=== PATIENT | male | born 1975 | race Caucasian/White ===

== ENCOUNTER 2018-08-05 06:25 | Day surgery (SDC) | payer BC ==
[2018-07-30 16:42] LABS: Absolute Lymphocytes (CBC) 2.1 K/uL (0.7-4.9); Absolute Monocytes 0.6 K/uL (0.1-1.3); Absolute Neutrophil 6.8 K/uL (1.8-8.0); Basophils % 0.4 % (0-1.3); Eosinophils % 1.2 % (0-4.4); Hematocrit 45.7 % (39.6-49.0); Lymphocytes % 21.8 % (15.3-44.8); MPV 10.2 fL (7.6-11.3); Monocytes % 6.4 % (3.3-12.3); RBC Red Blood Cell Count 5.13 M/uL (4.33-5.43)
[2018-07-30 16:54] LABS: Potassium 3.6 mmol/L (3.5-5.1)
[2018-07-30 16:56] LABS: Protime INR 1.04
--- NOTE | 2018-08-04 11:21 | EKG ---
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
--- OUTSIDE RECORDS SUMMARY | 2018-08-05 06:31 | XMS REPORT ---
:1975 Author Organization [employer] Care Team Providers Name Role Phone Emmanuel Staley Provider Role Unavailable Allergies, Adverse Reactions, Alerts Substance Reaction Event Type Ibuprofen Info Not Available Drug Allergy Problems Problem Type Condition Code Onset Dates Condition Status Problem Seasonal allergic rhinitis due to J30.1 Active pollen Problem Migraine with status migrainosus, G43.901 Active not intractable, unspecified migraine type Problem Low back pain, unspecified back M54.5 Active pain laterality, unspecified chronicity, with sciatica presence unspecified Assessment Tear of medial meniscus of right S83.241A Active knee, current, unspecified tear type, initial encounter Assessment Pain in joint of right knee M25.561 Active Medications No Known Medications Results No Known Results Summary Purpose [employer] Submission
--- OUTSIDE RECORDS SUMMARY | 2018-08-05 06:32 | XMS REPORT ---
:1975 Author Organization [employer] Care Team Providers Name Role Phone Emmanuel Staley Provider Role Unavailable Allergies No Known Allergies Problems Problem Type Condition Code Onset Dates Condition Status Problem Seasonal allergic rhinitis due to J30.1 Active pollen Problem Migraine with status migrainosus, G43.901 Active not intractable, unspecified migraine type Problem Low back pain, unspecified back M54.5 Active pain laterality, unspecified chronicity, with sciatica presence unspecified Medications No Known Medications Results No Known Results Summary Purpose [employer] Submission
--- OUTSIDE RECORDS SUMMARY | 2018-08-05 06:32 | XMS REPORT ---
[...] joint of right knee M25.561 Active Medications Medication Code System Code Instructions Start End Date Status Dosage Date [facility] [id number] 7.5-325 MG July 30August 19, Active 1 tablet Orally every 4-6 2018 2018 as needed hrs Results No Known Results Summary Purpose [employer] Submission
[2018-08-05] MEDS ORDERED: Ringers Lactate 1,000 ML IV ONE (07:02)
[2018-08-05] MEDS ORDERED: PROPOFOL 200 MG/20 ML VIAL IV ONE (07:11)
[2018-08-05] MEDS ORDERED: KETOROLAC 30 MG/ML INJ ONE (07:11)
[2018-08-05] MEDS ORDERED: MIDAZOLAM HCL 2 MG/2 ML INJ ONE (07:11)
[2018-08-05] MEDS ORDERED: LIDOCAINE 2% MPF 5 ML VIAL ONE (07:11)
[2018-08-05] MEDS ORDERED: FENTANYL CITR 100 MCG/2 ML ONE (07:11)
[2018-08-05] MEDS ORDERED: CEFAZOLIN/SWI 1gm 1 GM/10 ML SYR ONE (07:37)
[2018-08-05] MEDS ORDERED: DEXAMETHASONE 10 MG/ML VIAL ONE (07:39)
[2018-08-05] MEDS: BUPIVACAINE 0.25% PF 10 ML VIAL ONE ×2 (07:56→08:20)
--- NOTE | 2018-08-05 08:44 | P.BOP ---
Preoperative diagnosis: right knee bucket handle medial meniscus tear Postoperative diagnosis: same Primary procedure: right knee arthroscopic partial medial meniscectomy Secondary procedure: none Media Traffic Manager: NONE,NONE Estimated blood loss: 5 cc Specimen: none Findings: see dictation Anesthesia: General Complications: None Implants: none Fluids & blood products: per anesthesia record; TT: 32 mins @ 250 mmHg Transferred to: Recovery Room Condition: Good
[2018-08-05] MEDS: HYDROMORPHONE HCL 1 MG/ML INJ ONE ×4 (08:48→09:08)
[2018-08-05] MEDS ORDERED: HYDROCODONE/APAP 7.5/325 MG TAB ONE (09:58)
--- NOTE | 2018-08-06 06:35 | OP ---
Date of Procedure: 08/05/2018 Surgeon: Emmanuel Staley MD Preoperative Diagnosis: Right knee bucket-handle medial meniscus tear. Postoperative Diagnosis: Right knee bucket-handle medial meniscus tear. Procedure Performed: Right knee arthroscopic partial medial meniscectomy. Anesthesia: General LMA. Fluids: Per Anesthesia record. Estimated Blood Loss: Less than 5 cc. Complications: None. Implants: None. Tourniquet Time: 32 minutes at 250 mmHg. Indication For Procedure: Sb is a 42-year-old male presented to my clinic with signs and symptom s and MRI findings consistent with bucket-handle medial meniscus tear. I discussed with the patient at length risks and benefits associated with operative and nonoperative treatment. Given his pain an d mechanical symptoms, I recommended right knee arthroscopic partial medial meniscectomy versus media l meniscus tear. Risks and benefits associated with the procedure were discussed with the patient at length and he expressed understanding and elected to proceed with the operative treatment. Description Of Procedure: After informed consent was obtained, the patient was identified in the pre operative holding area. The right lower extremity was marked. The patient was then brought back to the operating room, transferred to the operating table in a supine fashion, and placed under general LMA anesthesia. The right lower extremity was then prepped and draped in the usual sterile fashion. Time-out was initiated. Correct patient and procedure were confirmed and identified. The patient d id receive his preoperative prophylactic antibiotics. The right lower extremity was then exsanguinat ed using an Esmarch and the tourniquet was inflated at 250 mmHg. Standard anterolateral portal was c reated and diagnostic arthroscope was brought into the anterolateral portal. Diagnostic arthroscopy was then performed. Arthroscope was first brought into the patellofemoral joint. There was overall no significant chondral damage noted in the undersurface of the patella or trochlear groove. The art hroscope was brought into both medial and lateral gutters, but there were no loose bodies found. The arthroscope was then brought into the medial compartment where the patient was noted to have a displ aced bucket-handle medial meniscus tear. There did appear to be the white zone. The displaced tissu e was friable consistent with injury, not amenable to repair. Using the arthroscopic shav er and meniscal biters, the partial medial meniscectomy was performed to smooth meniscal borders. Th ere are minimal grade 1 chondromalacia changes noted on the undersurface of the medial femoral condyl e. Medial tibial plateau was found to be the arthroscope was brought into the t he arthroscope was then brought into the lateral compartment where the patient was noted to an intact lateral meniscus as well as lateral femoral condyle and lateral tibial plateau. The arth roscope and arthroscopic shaver were then brought onto the patellofemoral joint. The shaver __ the wound was then irrigated thoroughly. The arthroscopic instruments were then removed. Wound w as irrigated thoroughly with normal saline. Portals were approximated using a 3-0 Monocryl. Sterile dressings were applied. The patient was awakened and transferred to PACU in stable condition. Postoperative Plan: He will be weightbearing as tolerated. Physical Therapy will be consulted to zhane vazquez in mobilization and follow up in my clinic next week for wound check. LUCAS/STEPHANIA Voice ID: [id number] Report ID: [id number]
== END 2018-08-05 10:55 | disposition home or self-care (01) ==
LOC: OR 06:25
PROVIDERS: ATTEND Orthopaedic Surgery Sports Medicine
PROC: 0SBC4ZZ Excision of Right Knee Joint, Percutaneous Endoscopic Approach (ICD-10-PCS; principal; 2018-08-05 07:30)
DX: S83.211A Bucket-handle tear of medial meniscus, current injury, right knee, initial encounter (principal); M94.261 Chondromalacia, right knee; X58.XXXA Exposure to other specified factors, initial encounter
CPT/HCPCS: 36415; 80048; 85025; 85610; 85730; 93005; J0690; J1100; J1170; J2250; J2704; J3010